=== PATIENT | male | born 1980 | race Caucasian/White ===

== ENCOUNTER 2016-12-20 23:19 | Emergency (ER) | payer OTHER ==
[~2016-12-20 23:19] MED LIST: IBUPROFEN800 MG PO
== END 2016-12-21 00:07 | disposition home or self-care (01) ==
LOC: ER1 23:19
DX: H61.22 Impacted cerumen, left ear (principal); F17.200 Nicotine dependence, unspecified, uncomplicated
CPT/HCPCS: 99282

== ENCOUNTER 2020-06-03 23:05 | Emergency (ER) | payer OTHER ==
[~2020-06-03 23:05] MED LIST changes: +FELDENE10 MG PO; +FLEXERIL 10 MG10 MG PO; +PREDNISONE 50 M50 MG PO; +Voltaren Gel 1 % TOP
[2020-06-04] MEDS ORDERED: DOXYCYCLINE HY100 MG PO (00:23)
== END 2020-06-04 00:31 | disposition home or self-care (01) ==
LOC: ER1 23:05
DX: S91.331A Puncture wound without foreign body, right foot, initial encounter (principal); F17.210 Nicotine dependence, cigarettes, uncomplicated; W26.8XXA Contact with other sharp object(s), not elsewhere classified, initial encounter; W45.8XXA Other foreign body or object entering through skin, initial encounter; Z88.0 Allergy status to penicillin
CPT/HCPCS: 73630; 99283